=== PATIENT | male | born 1995 | race Caucasian/White ===

== ENCOUNTER 2018-12-06 15:22 | Inpatient (IN) | payer OTHER ==
[2018-12-06 17:02] VITALS: BMI 24.8
--- NOTE | 2018-12-06 23:43 | HP ---
COWS - Scale Resting Pulse: 0= [place] 80 or Below Sweatin=Flushed/Facial Moisture Restless Observation: 5= Unable to Sit Still Pupil Size: 1= Pupils >than Normal Bone or Joint Aches: 4=Acute Joint/Muscle Pain Runny Nose/ Eye Tearin= Constantly Teary/Runny GI Upset > 30mins: 3= Vomiting/Diarrhea Tremor Observation: 2= Slight Tremor Visible Yawning Observation: 1= 1-2x During Session Anxiety or Irritability: 4=Extreme Anxiety Goose Flesh Skin: 0=Smooth Skin COWS Score: 26 CIWA Score Nausea/Vomitin Muscle Tremors: 3 Anxiety: 5 Agitation: 5 Paroxysmal Sweats: 3 Orientation: 0-Oriented Tacttile Disturbances: 2-Mild Itch/Numbness/Burn Auditory Disturbances: 2-Mild Harshness/Frighten Visual Disturbances: 3-Moderate Sensitivity Headache: 4-Moderately Severe CIWA-Ar Total Score: 30 - Admission Criteria [facility]ASAS Guidelines: Admission for Medically Managed Detox: Requires at least one of the followin. CIWA greater than 12 2. Seizures within the past 24 hours 3. Delirium tremens within the past 24 hours 4. Hallucinations within the past 24 hours 5. Acute intervention needed for co occurring medical disorder 6. Acute intervention needed for co occurring psychiatric disorder 7. Severe withdrawal that cannot be handled at a lower level of care (continued vomiting, continued diarrhea, abnormal vital signs) requiring intravenous medication and/or fluids 8. Patient presents the following: CIWA greater than 12 Admission Criteria Met: Admission criteria met Admission ROS [facility] Chief Complaint: c/o withdrawal sx's. seeking detox Allergies/Adverse Reactions: Allergies Allergy/AdvReac Type Severity Reaction Status Date / Time No Known Allergies Allergy Verified 12/06/18 16:49 History of Present Illness: 23 y.o. male with benzo dependence here for detox. client is also on mmtp 70 mg at [facility] today. pending verification. client returns from [facility] after being sent there for med clearance due to oversedation. he report ongoing use of heroin, ivdu, and daily benzo use. last use this morning. +hx for sz blackouts,drug overdose. longest clean time 3 years self maintained, relapasing this past june. homeless, unemployed, denies legals Exam Limitations: No Limitations - Ebola screening Have you traveled outside of the country in the last 21 days: No (N) Have you had contact with anyone from an Ebola affected area: No Do you have a fever: No - Review of Systems Constitutional: Chills, Loss of Appetite, Malaise, Night Sweats, Changes in sleep EENT: reports: Tearing, Nose Congestion, Other (watery eyes) Respiratory: reports: No Symptoms reported Cardiac: reports: No Symptoms Reported GI: reports: Diarrhea, Nausea, Poor Appetite, Poor Fluid Intake, Vomiting, Abdominal cramping : reports: No Symptoms Reported Musculoskeletal: reports: Back Pain, Joint Pain, Neck Pain, Other (bodyaches) Integumentary: reports: Flushing, Sweating Neuro: reports: Headache, Seizure (r/t withdrawal sx's), Tremors Endocrine: reports: No Symptoms Reported Hematology: reports: No Symptoms Reported Psychiatric: reports: Orientated x3, Agitated (irritable), Anxious, Depressed Other Systems: Reviewed and Negative Patient History - Patient Medical History Hx Anemia: No Hx Asthma: No Hx Chronic Obstructive Pulmonary Disease (COPD): No Hx Cancer: No Hx Cardiac Disorders: No Hx Congestive Heart Failure: No Hx Hypertension: No Hx Hypercholesterolemia: No Hx Pacemaker: No HX Cerebrovascular Accident: No Hx Seizures: Yes (r/t benzo/alcohol withdrawal) Hx Dementia: No Hx Diabetes: No Hx Gastrointestinal Disorders: No Hx Liver Disease: Yes (perforation) Hx Genitourinary Disorders: No Hx Sexually Transmitted Disorders: No Hx Renal Disease (ESRD): No Hx Thyroid Disease: No Hx Human Immunodeficiency Virus (HIV): No Hx Hepatitis C: No Hx Depression: Yes Hx Suicide Attempt: No Hx Bipolar Disorder: No Hx Schizophrenia: No Other Medical History: ptsd - Patient Surgical History Past Surgical History: No - PPD History Previous Implant?: Yes Documented Results: Negative w/o proof Implanted On Prior [facility] Admission?: No PPD to be Administered?: Yes - Smoking Cessation Smoking history: Current every day smoker Have you smoked in the past 12 months: Yes Aproximately how many cigarettes per day: 10 Cigars Per Day: 0 Hx Chewing Tobacco Use: No Initiated information on smoking cessation: Yes 'Breaking Loose' booklet given: 12/06/18 - Substance & Tx. History Hx Alcohol Use: Yes Hx Substance Use: Yes Substance Use Type: Alcohol, Cocaine, Heroin, Marijuana, Opiates, Tranquilizers (xanax) Hx Substance Use Treatment: Yes ([place]) - Substances abused Alcohol Substance route: Oral Frequency: 3-6 times per week Amount used: 1 pint of Whisky Age of first use: 11 Date of last use: 12/06/18 Methamphetamine Substance route: Injection Frequency: Daily Amount used: about 1 gram Age of first use: 16 Date of last use: 12/03/18 Heroin Substance route: Injection Frequency: Daily Amount used: 7 to 8 bags Age of first use: 16 Date of last use: 12/05/18 Alprazolam (Xanax) Substance route: Oral Frequency: Daily Amount used: 8 to 10 mg Age of first use: 12 Date of last use: 12/05/18 Benzodiazepine (Klonopin) Substance route: Oral Frequency: 3-6 times per week Amount used: 2 to 4 mg Age of first use: 13 Date of last use: 12/05/18 Marijuana/Hashish Substance route: Smoking Frequency: Daily Amount used: 7 grams Age of first use: 12 Date of last use: 12/04/18 Family Disease History - Family Disease History Family History: Unable to Obtain (estranged) Admission Physical Exam [facility] - Vital Signs Vital Signs: Vital Signs - 24 hr 12/06/18 16:48 Temperature 96.6 F L Pulse Rate 74 Respiratory 16 Rate Blood Pressure 130/76 - Physical General Appearance: Yes: Moderate Distress, Tremorous, Irritable, Sweating, Anxious, Other (crying) HEENTM: Yes: EOMI, Normocephalic, Normal Voice, SAMUEL, Pharynx Normal, Nasal Congestion, Rhinorrhea, Other (watery eyes) Respiratory: Yes: Chest Non-Tender, Lungs Clear, Normal Breath Sounds, No Respiratory Distress, No Accessory Muscle Use Neck: Yes: No masses,lesions,Nodules, Supple, Trachea in good position Breast: Yes: Breast Exam Deferred Cardiology: Yes: Regular Rhythm, Regular Rate, S1, S2 Abdominal: Yes: Normal Bowel Sounds, Non Tender, Flat, Soft Genitourinary: Yes: Within Normal Limits Back: Yes: Normal Inspection Musculoskeletal: Yes: full range of Motion, Gait Steady Extremities: Yes: Normal Range of Motion, Non-Tender, Tremors, Other (injection cueva noted to both arms) Neurological: Yes: Fully Oriented, Alert, Motor Strength 5/5, Depressed Affect ( denies si) Integumentary: Yes: Warm, Moist, Track Cueva Lymphatic: Yes: Within Normal Limits - Diagnostic (1) Alcohol dependence with uncomplicated withdrawal Current Visit: Yes Status: Acute (2) Cannabis dependence, uncomplicated Current Visit: Yes Status: Acute (3) Uncomplicated opioid dependence Current Visit: Yes Status: Acute (4) Methadone maintenance therapy patient Current Visit: Yes Status: Chronic (5) Sedative, hypnotic or anxiolytic dependence with withdrawal, uncomplicated Current Visit: Yes Status: Acute (6) Substance induced mood disorder Current Visit: Yes Status: Acute (7) Nicotine dependence Current Visit: Yes Status: Acute Qualifiers: Nicotine product type: cigarettes Substance use status: uncomplicated Qualified Code(s): F17.210 - Nicotine dependence, cigarettes, uncomplicated (8) Homeless Current Visit: Yes Status: Suspected (9) IVDU (intravenous drug user) Current Visit: Yes Status: Acute Cleared for Admission S - Detox or Rehab S Level of Care: Medically Managed Detox Regimen/Protocol: Valium Claeared for Rehab Admission: No Inpatient Rehab Admission - Rehab Decision to Admit Inpatient rehab admission?: No
[2018-12-06] MEDS ORDERED: NICOTINE POLACRILEX 2 MG GUM BUC PRN (23:48)
[2018-12-06] MEDS ORDERED: ONDANSETRON *ODT* 4 MG TABLET SL PRN (23:48)
[2018-12-06] MEDS ORDERED: MENTHOL/PHENOL 1 EACH UD MM PRN (23:48)
[2018-12-06] MEDS ORDERED: MAGNESIUM HYDROX 2400MG/30ML ORAL SUSPENSION 30 ML CUP PO PRN (23:48)
[2018-12-06] MEDS ORDERED: hydrOXYzine HCL 25 MG TABLET (FP) PO PRN (23:48)
[2018-12-06] MEDS ORDERED: guaiFENesin 200 MG/10 ML 10 ML UNIT-DOSE CUPS PO PRN (23:48)
[2018-12-06] MEDS ORDERED: IBUPROFEN 400 MG TABLET (FP) PO PRN (23:48)
[2018-12-06] MEDS ORDERED: P-EPHED 60MG/TRIPROLIDI 2.5MG TABLET PO PRN (23:48)
[2018-12-06] MEDS ORDERED: DICYCLOMINE HCL 10 MG CAPSULE PO PRN (23:48)
[2018-12-06] MEDS ORDERED: MAGNESIUM CITRATE 300 ML BOTTLE PO PRN (23:48)
[2018-12-06] MEDS ORDERED: BISMUTH SUBSALICYLATE 524 MG/30 ML UD PO PRN (23:48)
[2018-12-06] MEDS ORDERED: MAG HYDROX/AL HYDROX/SIMETH 30 ML UNIT-DOSE CUP PO PRN (23:48)
[2018-12-06] MEDS ORDERED: ACETAMINOPHEN 325 MG TABLET (FP) PO PRN ×2 (23:48)
[2018-12-07] MEDS: diazePAM 5 MG TABLET PO SCH ×4 (01:49→23:05)
[2018-12-07] MEDS: PRENATAL VITAMINS W/ FOLIC ACID TABLET (FP) PO SCH (10:52)
[2018-12-07] MEDS: NICOTINE 14 MG/24 HOURS TOPICAL PATCH TD SCH (10:52)
[2018-12-07 10:57] LABS: HEMATOCRIT 40.7 % (35.4-49); MCH 28.8 pg (25.7-33.7); MCHC 34.4 g/dl (32.0-35.9); MEAN CELL VOLUME 83.8 fl (80-96); MEAN PLT VOLUME 8.1 fl (7.5-11.1); RBC 4.85 M/mm3 (4.00-5.60); RDW 12.5 % (11.9-15.9); WHITE BLOOD COUNT 4.4 K/mm3 (4.0-10.0)
[2018-12-07 11:14] LABS: ALBUMIN 3.4 g/dl (3.4-5.0); BILIRUBIN,TOTAL 0.3 mg/dL (0.2-1); BLOOD UREA NITROGEN 11.9 mg/dL (7-18); CALCIUM 8.9 mg/dL (8.5-10.1); CREATININE 0.8 mg/dL (0.55-1.3); POTASSIUM 3.7 mmol/L (3.5-5.1); TOT PROT 6.4 g/dl (6.4-8.2)
[2018-12-07 11:22] LABS: PLATELET COUNT 220 K/MM3 (134-434)
[2018-12-07] MEDS ORDERED: METHADONE HCL 10 MG TABLET PO ONE ×2 (11:54→22:47)
--- NOTE | 2018-12-07 11:59 | PN ---
S Progress Note Note: Pt is on methadone 70mg po daily, as per RN unable to reach pt's program for verification. Will give methadone 20mg po once today pending verification tomorrow.
--- NOTE | 2018-12-07 12:00 | PN ---
S CIWA - CIWA Score Nausea/Vomitin-No Nausea/No Vomiting Muscle Tremors: None Anxiety: 3 Agitation: 2 Paroxysmal Sweats: 3 Orientation: 0-Oriented Tacttile Disturbances: 0-None Auditory Disturbances: 0-None Visual Disturbances: 0-None Headache: 2-Mild CIWA-Ar Total Score: 10 S COWS - Scale Resting Pulse: 0= [place] 80 or Below Sweatin= Beads of Sweat on Face Restless Observation: 1= Difficult to Sit Still Pupil Size: 0= Normal to Room Light Bone or Joint Aches: 4=Acute Joint/Muscle Pain Runny Nose/ Eye Tearin= None GI Upset > 30mins: 0= None Tremor Observation of Outstretched Hands: 0= None Yawning Observation: 1= 1-2x During Session Anxiety or Irritability: 2=Irritable/Anxious Goose Flesh Skin: 0=Smooth Skin COWS Score: 11 [facility] Progress Note (SOAP) Subjective: c/o headache, muscle aches, sweats, and anxiety. Objective: 12/07/18 12:03 Vital Signs 12/07/18 12/07/18 06:00 10:02 Temperature 98.1 F 97.7 F Pulse Rate 69 77 Respiratory 18 18 Rate Blood Pressure 96/56 L 113/57 L Lab Results WBC 4.4 K/mm3 (4.0-10.0) 12/07/18 08:00 RBC 4.85 M/mm3 (4.00-5.60) 12/07/18 08:00 Hgb 14.0 GM/dL (11.7-16.9) 12/07/18 08:00 Hct 40.7 % (35.4-49) 12/07/18 08:00 MCV 83.8 fl (80-96) 12/07/18 08:00 MCHC 34.4 g/dl (32.0-35.9) 12/07/18 08:00 RDW 12.5 % (11.9-15.9) 12/07/18 08:00 Plt Count 220 K/MM3 (134-434) 12/07/18 08:00 Sodium 140 mmol/L (136-145) 12/07/18 08:00 Potassium 3.7 mmol/L (3.5-5.1) 12/07/18 08:00 Chloride 103 mmol/L (98-107) 12/07/18 08:00 Carbon Dioxide 31 mmol/L (21-32) 12/07/18 08:00 Anion Gap 6 MMOL/L (8-16) L 12/07/18 08:00 BUN 11.9 mg/dL (7-18) 12/07/18 08:00 Creatinine 0.8 mg/dL (0.55-1.3) 12/07/18 08:00 Random Glucose 108 mg/dL (74-106) H 12/07/18 08:00 Calcium 8.9 mg/dL (8.5-10.1) 12/07/18 08:00 Labs Reviewed. Assessment: 12/07/18 12:03 AOX3, in no acute respiratory distress. Full ROM, ambulating in the unit. Withdrawal symptoms. Plan: continue detox.
[2018-12-07] MEDS: METHOCARBAMOL 500 MG TABLET PO PRN ×2 (13:23→22:59)
[2018-12-07] MEDS: diazePAM 5 MG TABLET PO PRN ×2 (13:23→17:56)
--- NOTE | 2018-12-07 13:46 | CONSULT ---
[facility] Psychiatric Consult - Data Date of interview: 12/07/18 Admission source: [facility] Identifying data: First admission to [facility] for this 23 y/o male self-referred for detoxification (alcohol, cocaine, heroin, cannabis, xanax). Interviewed at [address] [place] [address]. Patient is single, no dependents, domiciled, unemployed (lost his job a week ago) and supported by his fiancee. Substance Abuse History: Confirmed by patient. Details in current [facility] report as follows : Smoking history: Current every day smoker. Have you smoked in the past 12 months: Yes. Aproximately how many cigarettes per day: 10. Cigars Per Day: 0. Hx Chewing Tobacco Use: No. Initiated information on smoking cessation : Yes. 'Breaking Loose' booklet given: 12/06/18. - Substance & Tx. History. Hx Alcohol Use: Yes. Hx Substance Use: Yes. Substance Use Type: Alcohol, Cocaine, Heroin, Marijuana, Opiates, Tranquilizers (xanax). Hx Substance Use Treatment: Yes ([place]). - Substances abused. Alcohol. Substance route: Oral. Frequency: 3-6 times per week. Amount used: 1 pint of Whisky. Age of first use: 11. Date of last use: 12/06/18. Methamphetamine. Substance route: Injection. Frequency: Daily. Amount used: about 1 gram. Age of first use: 16. Date of last use: 12/03/18. Heroin. Substance route: Injection. Frequency: Daily. Amount used: 7 to 8 bags. Age of first use: 16. Date of last use: 12/05/18. Alprazolam (Xanax). Substance route: Oral. Frequency: Daily. Amount used: 8 to 10 mg. Age of first use: 12. Date of last use: 12/05/18. Benzodiazepine (Klonopin). Substance route: Oral. Frequency: 3-6 times per week. Amount used: 2 to 4 mg. Age of first use: 13. Date of last use: 12/05/18. Marijuana/Hashish. Substance route: Smoking. Frequency: Daily. Amount used: 7 grams. Age of first use: 12. Date of last use: 12/04/18 Medical History: Patient endorses good general health. Mr Gonzales reports an antecedent of hip injury (while serving in the [employer] in [place]), liver disease and a history of withdrawal-related seizures. Psychiatric History: Patient denies history of psychiatric hospitalizations. He is reportedly on methadone maintenance (70 mg/day : to be confirmed) at the [facility] MMTP program. Mr Gonzales endorses the diagnosis of PTSD. Not on psychotropic medications with the exception of xanax (self-medicated; purchased in the streets) and methadone (agonist therapy). Patient denies history of suicide attempts. Physical/Sexual Abuse/Trauma History: Patient denies history of abuse. Served in the [employer] for approximately two years. Was stationed in [place]. Got injured in training. Was reportedly treated with opioid analgesics (departure point of his opioid dependence, as per self-report). Mr Gonzales states that he was dismissed from the [employer] on a " less than honorable " discharge status. Additional Comment: No toxicology avalaible for review. Mental Status Exam - Mental Status Exam Alert and Oriented to: Time, Place, Person Cognitive Function: Good Patient Appearance: Well Groomed (appears stated age) Mood: Angry, Anxious, Irritable (threatened to leave AMA if not given 70 mg of methadone) Affect: Appropriate (during interview), Normal Range Patient Behavior: Appropriate (medication-seeking but receptive to counseling), Cooperative Speech Pattern: Clear, Appropriate Voice Loudness: Normal Thought Process: Intact, Goal Oriented Thought Disorder: Not Present Hallucinations: Denies Suicidal Ideation: Denies Homicidal Ideation: Denies Insight/Judgement: Poor Sleep: Fair Appetite: Good Muscle strength/Tone: Normal Gait/Station: Normal Psychiatric Findings - Problem List ([place], 2,3) (1) Alcohol dependence with uncomplicated withdrawal Current Visit: Yes Status: Acute (2) Sedative, hypnotic or anxiolytic dependence with withdrawal, uncomplicated Current Visit: Yes Status: Acute (3) Opioid dependence on agonist therapy Current Visit: Yes Status: Chronic (4) Cannabis dependence, uncomplicated Current Visit: Yes Status: Chronic (5) Nicotine dependence Current Visit: Yes Status: Chronic Qualifiers: Nicotine product type: cigarettes Substance use status: uncomplicated Qualified Code(s): F17.210 - Nicotine dependence, cigarettes, uncomplicated (6) Substance induced mood disorder Current Visit: Yes Status: Chronic (7) Insomnia Current Visit: Yes Status: Chronic - Initial Treatment Plan Initial Treatment Plan: Psychoeducation. Reassurance and support. Detoxification. Clarification of medications orders : conducted with patient. Encouraged to utilize prn medications for episodic anxiety symptoms. Motivational counseling. AA/NA meetings. Patient is agreeable with melatonin at bedtime to address insomnia. Sleep hygiene. Groups. Observation.
--- NOTE | 2018-12-07 22:48 | PN ---
S Progress Note Note: c/o opiate withdrawal sxs 2/ to not getting his mmtp dose of a reported 70 mg. client reports last medicated on 12/06/2018. received 20 mg of methadone earlier today. will give an additional 10 mg now. pending dose verification. cont to monitor clinically
[2018-12-07] MEDS: MELATONIN 5 MG TABLETS PO PRN (22:59)
[2018-12-07] MEDS: THIAMINE HCL 100 MG TABLET (FP) PO SCH (23:05)
[2018-12-08] MEDS: diazePAM 5 MG TABLET PO SCH ×2 (06:10→19:34)
[2018-12-08] MEDS ORDERED: METHADONE HCL 10 MG TABLET PO ONE (10:12)
[2018-12-08] MEDS: METHOCARBAMOL 500 MG TABLET PO PRN (10:53)
[2018-12-08] MEDS: diazePAM 5 MG TABLET PO PRN ×3 (10:54→22:53)
[2018-12-08] MEDS: NICOTINE 14 MG/24 HOURS TOPICAL PATCH TD SCH (10:55)
[2018-12-08] MEDS: PRENATAL VITAMINS W/ FOLIC ACID TABLET (FP) PO SCH (10:55)
--- NOTE | 2018-12-08 17:15 | PN ---
[facility] CIWA - CIWA Score Nausea/Vomitin-Mild Nausea/No Vomiting Muscle Tremors: 3 Anxiety: 3 Agitation: 3 Paroxysmal Sweats: 3 Orientation: 0-Oriented Tacttile Disturbances: 0-None Auditory Disturbances: 0-None Visual Disturbances: 0-None Headache: 0-None Present CIWA-Ar Total Score: 13 [facility] COWS - Scale Resting Pulse: 0= [place] 80 or Below Sweatin= Chills/Flushing Restless Observation: 3= Extraneous Movement Pupil Size: 0= Normal to Room Light Bone or Joint Aches: 2= Severe Diffuse Aches Runny Nose/ Eye Tearin= Runny Nose/Eyes GI Upset > 30mins: 1= Stomach Cramp Tremor Observation of Outstretched Hands: 2= Slight Tremor Visible Yawning Observation: 0= None Anxiety or Irritability: 2=Irritable/Anxious Goose Flesh Skin: 0=Smooth Skin COWS Score: 13 S Progress Note (SOAP) Subjective: Restless, agitated, irritable, "feels shitty," stomachache, chills, nausea. Patient stated he's on methadone 70mg at [facility] and last received his dose on Sunday. Patient stated he didn't go to the clinic on Sunday because he was waiting to be picked up to come her for detox. Objective: 12/08/18 17:13 Last Vital Signs Temp Pulse Resp BP Pulse Ox 97.7 F 58 L 18 103/68 12/08/18 10:50 12/08/18 10:50 12/08/18 10:50 12/08/18 10:50 Laboratory Tests 12/07/18 12/07/18 12/07/18 08:00 08:00 08:00 WBC 4.4 RBC 4.85 Hgb 14.0 Hct 40.7 MCV 83.8 MCH 28.8 MCHC 34.4 RDW 12.5 Plt Count 220 MPV 8.1 Sodium 140 Potassium 3.7 Chloride 103 Carbon Dioxide 31 Anion Gap 6 L BUN 11.9 Creatinine 0.8 Est GFR (CKD-EPI)AfAm 145.93 Est GFR (CKD-EPI)NonAf 125.91 Random Glucose 108 H Calcium 8.9 Total Bilirubin 0.3 AST 32 ALT 45 Alkaline Phosphatase 77 Total Protein 6.4 Albumin 3.4 RPR Titer Nonreactive Labs reviewed Assessment: 12/08/18 17:13 Withdrawal sxs Plan: Continue detox Encouraged PO water intake Methadone 20mg PO x 1 dose given until MMTP dose approved in AM Patient with active withdrawal sxs, consider keeping patient another day or two.
[2018-12-08] MEDS ORDERED: METHADONE HCL 10 MG TABLET (FOR DETOX USE ONLY) PO ONE (18:14)
--- NOTE | 2018-12-08 18:15 | PN ---
[facility] Progress Note Note: pt dose not verified additional 10mg dose to be admin/ordered pending dose verification in am
[2018-12-08] MEDS: THIAMINE HCL 100 MG TABLET (FP) PO SCH (23:21)
[2018-12-09] MEDS ORDERED: diazePAM 5 MG TABLET PO ONE (06:00)
[2018-12-09] MEDS: diazePAM 5 MG TABLET PO PRN ×4 (06:19→20:59)
[2018-12-09] MEDS ORDERED: METHADONE HCL 10 MG TABLET PO SCH (07:45)
[2018-12-09] MEDS ORDERED: METHADONE HCL 10 MG TABLET ONE (07:46)
[2018-12-09] MEDS ORDERED: METHADONE HCL 40 MG DISPERSABLE TABLET ONE (07:46)
[2018-12-09] MEDS: METHADONE 40 MG, METHADONE 30 MG PO SCH (07:49)
[2018-12-09] MEDS: NICOTINE 14 MG/24 HOURS TOPICAL PATCH TD SCH (10:46)
[2018-12-09] MEDS: PRENATAL VITAMINS W/ FOLIC ACID TABLET (FP) PO SCH (10:46)
--- NOTE | 2018-12-09 11:36 | PN ---
[facility] CIWA - CIWA Score Nausea/Vomitin-No Nausea/No Vomiting Muscle Tremors: 3 Anxiety: 2 Agitation: 2 Paroxysmal Sweats: 2 Orientation: 0-Oriented Tacttile Disturbances: 0-None Auditory Disturbances: 0-None Visual Disturbances: 0-None Headache: 0-None Present CIWA-Ar Total Score: 9 S Progress Note (SOAP) Subjective: anxiety shakes restless stomach ache Objective: 12/09/18 11:35 Vital Signs Temperature 98.1 F 12/09/18 09:39 Pulse Rate 60 12/09/18 09:39 Respiratory Rate 17 12/09/18 09:39 Blood Pressure 104/64 12/09/18 09:39 O2 Sat by Pulse Oximetry (%) aaox3 ambulating no acute distress Assessment: 12/09/18 11:35 withdrawals Plan: continue detox increase fluids dietary consultation ordered jeny diasn d/c in am
--- NOTE | 2018-12-09 13:02 | EKG ---
Test Reason : Blood Pressure : / mmHG Vent. Rate : 069 BPM Atrial Rate : 069 BPM P-R Int : 178 ms QRS Dur : 082 ms QT Int : 394 ms P-R-T Axes : 028 046 042 degrees QTc Int : 422 ms NORMAL SINUS RHYTHM NORMAL ECG NO PREVIOUS ECGS AVAILABLE Confirmed by REINALDO LEMUS MD ([id number]) on 12/09/2018 1:02:22 PM Referred By: Confirmed By:REINALDO LEMUS MD
[2018-12-09] MEDS: THIAMINE HCL 100 MG TABLET (FP) PO SCH (20:59)
[2018-12-09] MEDS: MELATONIN 5 MG TABLETS PO PRN (20:59)
[2018-12-10] MEDS ORDERED: METHADONE HCL 10 MG TABLET ONE (04:24)
[2018-12-10] MEDS ORDERED: METHADONE HCL 40 MG DISPERSABLE TABLET ONE (04:24)
[2018-12-10] MEDS: METHADONE 40 MG, METHADONE 30 MG PO SCH (06:43)
[2018-12-10 09:47] VITALS: BP 120/70; PULSE 88; TEMP 97.9
--- NOTE | 2018-12-10 10:13 | DS ---
[facility] Detox Discharge Summary Admission Date: 12/06/18 Discharge Date: 12/10/18 - History Present History: Alcohol Dependence, MMTP - Physical Exam Results Vital Signs: Vital Signs Temperature 97.9 F 12/10/18 09:44 Pulse Rate 88 12/10/18 09:44 Respiratory Rate 18 12/10/18 09:44 Blood Pressure 120/70 12/10/18 09:44 O2 Sat by Pulse Oximetry (%) Pertinent Admission Physical Exam Findings: pt arrived in withdrawals Laboratory Tests 12/07/18 12/07/18 12/07/18 08:00 08:00 08:00 WBC 4.4 RBC 4.85 Hgb 14.0 Hct 40.7 MCV 83.8 MCH 28.8 MCHC 34.4 RDW 12.5 Plt Count 220 MPV 8.1 Sodium 140 Potassium 3.7 Chloride 103 Carbon Dioxide 31 Anion Gap 6 L BUN 11.9 Creatinine 0.8 Est GFR (CKD-EPI)AfAm 145.93 Est GFR (CKD-EPI)NonAf 125.91 Random Glucose 108 H Calcium 8.9 Total Bilirubin 0.3 AST 32 ALT 45 Alkaline Phosphatase 77 Total Protein 6.4 Albumin 3.4 RPR Titer Nonreactive today pt is aaox3 ambulating no s/s of withdrawals no acute distress - Treatment Hospital Course: Detox Protocol Followed, Detoxed Safely, Responded well, Discharged Condition Good, Rehab Referral Accepted Patient has Accepted a Rehab Referral to: pt referred to [facility] residential - Medication Discharge Medications: Ambulatory Orders NK [No Known Home Medication] 12/06/18 - Diagnosis (1) Alcohol dependence with uncomplicated withdrawal Current Visit: Yes Status: Chronic (2) IVDU (intravenous drug user) Current Visit: Yes Status: Chronic (3) Sedative, hypnotic or anxiolytic dependence with withdrawal, uncomplicated Current Visit: Yes Status: Chronic (4) Cannabis dependence, uncomplicated Current Visit: Yes Status: Chronic (5) Insomnia Current Visit: Yes Status: Chronic Qualifiers: Insomnia type: unspecified Qualified Code(s): G47.00 - Insomnia, unspecified (6) Methadone maintenance therapy patient Current Visit: Yes Status: Chronic (7) Nicotine dependence Current Visit: Yes Status: Chronic Qualifiers: Nicotine product type: cigarettes Substance use status: uncomplicated Qualified Code(s): F17.210 - Nicotine dependence, cigarettes, uncomplicated (8) Opioid dependence on agonist therapy Current Visit: Yes Status: Chronic (9) Substance induced mood disorder Current Visit: Yes Status: Chronic (10) Agitation Current Visit: No Status: Acute (11) Polysubstance (including opioids) dependence without physiological dependence Current Visit: Yes Status: Acute - AMA Did Patient Leave Against Medical Advice: No
== END 2018-12-10 10:38 | disposition home or self-care (01) | DRG 773 ==
LOC: YASAS 15:22 → Y6N 23:47
PROVIDERS: ADMIT Surgery; ATTEND Surgery
PROC: HZ2ZZZZ Detoxification Services for Substance Abuse Treatment (ICD-10-PCS; principal; 2018-12-06)
DX: F10.230 Alcohol dependence with withdrawal, uncomplicated (principal); F11.20 Opioid dependence, uncomplicated; F13.230 Sedative, hypnotic or anxiolytic dependence with withdrawal, uncomplicated; F12.20 Cannabis dependence, uncomplicated; F15.20 Other stimulant dependence, uncomplicated; F17.210 Nicotine dependence, cigarettes, uncomplicated; F19.24 Other psychoactive substance dependence with psychoactive substance-induced mood disorder; G47.00 Insomnia, unspecified; R45.1 Restlessness and agitation; Z59.0 Homelessness
CPT/HCPCS: 36415; 80053; 85027; 86480; 86593; 93005; 93010; Q0162